=== PATIENT | female | born 1980 | race Caucasian/White ===

== ENCOUNTER 2016-12-09 18:49 | Emergency (ER) | payer OTHER ==
[~2016-12-09] VITALS: Ht 177.8 cm; Wt 72.7 kg
[~2016-12-09 18:49] MED LIST: DIPH25CA6 PO; PERM60CR4 TP
--- NOTE | 2016-12-09 18:59 | ED.REPORT ---
HPI-Psychiatric Illness Date of Service Dec 09, 2016 ED Provider: Dr. Sterling Moore D.O. A 36 year old female with a history of scabies presents to the ED via Police with suicidal ideation onset just prior to arrival. The Police have a copy of a suicide note written by the patient to her boyfriend outlining a plan to overdose on medication, writing "I hope I took enough pills this time." The patient wrote she is tired of being taken for granted and asks "please find my cat a good home." The patient's note indicates some of her hopelessness is exacerbated by problems with her significant other. Per police, the patient reports not eating or drinking for the past three days.The patient presents tearful and denies ever having pills on her person. She denies suicidal ideation currently. Yesterday she broke a window with her hand and presents with lacerations to her right hand, as well as apparently self-inflicted, old lacerations to her right wrist. Nursing Notes Stated Complaint: SUICIDAL IDEATION Nursing Notes Reviewed: Yes Allergies: Coded Allergies: No Known Allergies (Unverified , 12/09/16) Scheduled Permethrin (Permethrin Cream) 60 Gm Cream..g. 1 APPLIC TP UD Follow package instructions Scheduled PRN diphenhydrAMINE HCl (Benadryl) 25 Mg Capsule 25 MG PO Q4 PRN PRN For Itching General Time Seen by MD: 18:58 Chief Complaint Suicidal ideation Hx Obtained From: Patient, Police Arrived By: Police Onset Occurred: Just prior to arrival Context of Onset: Problem with spouse (Partner) Symptom Duration: Since onset Location: : Arm right Quality: Painful Severity: Current: Moderate Severity: Maximum: Moderate Associated with: Reports: Depression, Loss of appetite, Denies: Fever Exacerbated by: Relationship stress Pertinent Negative: Relieved by nothing Immunizations: Unknown Recent Healthcare: No recent doctor visit Risk-Psychiatric Illness Suicide Risk Stratification RF Statements: Risk factors reviewed Past Medical History Past Medical History Scabies Past Surgical History None reported Smoking History Unknown if Ever Smoker Social History Alcohol Use: Denies alcohol use Drug Use: Denies drug use Other Social History: Good social support, From out of town (Moved here late 2015) Ambulatory Status Independent Review of Systems Review of Systems Note: + Lacerations to right hand and right wrist Constitutional: Denies: Fever Respiratory: Denies: Non-productive cough, Shortness of breath GI: Denies: Vomiting Psychiatric: Reports: Depression, Suicidal ideation Complete sys rev & neg: except as marked. Musculoskeletal: Reports: Extremity pain (Right hand, right wrist) Physical Exam Initial Vital Signs Vital Signs (First) Date Time Temp Pulse Resp B/P Pulse Ox O2 Delivery O2 Flow Rate FiO2 12/09/16 19:24 37.2 74 18 127/83 98 Room Air Initial VS: Reviewed Head / Eyes: Atraumatic, Normocephalic ENT: Conjunctiva normal, No scleral icterus Neck: Supple, Full range of motion Respiratory: Breath sounds normal, Clear to auscultation, No respiratory distress Cardiovascular: Regular rate & rhythm, Heart sounds normal Skin: Warm, Dry General/Constitutional: Awake, Alert Behavior: Positive: Tearful Not making eye contact Neurologic: Oriented X3, Speech NL Abnormal Mood/Affect: Positive: Depressed Poor eye contact Patient denies suicidal ideation currently but her note clearly indicates suicidal ideation with plan Wrist / Hand: Full range of motion Trauma / Burn / Environmental: Positive: Laceration (1 cm curvilinear laceration at base of right thumb, multiple old lacerations to right wrist) Interpretation & Diagnostics URINE DRUG SCREEN: + Marijuana + Methamphetamine URINE TEST: Negative URINE DIPSTICK: 1.015 sp gravity 6 pH ++ Leukocytes Trace Protein Normal Glucose ++ Bilirubin ~50 Blood Neg Nitrites Lab Results Interpretation Result Diagram: 12/09/16194012/09/161940 Test 12/09/16 19:29 12/09/16 19:32 12/09/16 19:41 Urine Color Yellow (YELLOW) Urine Appearance Cloudy (CLEAR,HAZY) Urine pH 6.5 (5.0-8.0) Urine Specific [place] 1.015 (1.003-1.035) Urine Protein Negativemg/dL (NEG,TRACE) Urine Glucose (UA) Negativemg/dL (NEGATIVE) Urine Ketones Negativemg/dL (NEGATIVE) Urine Occult Blood Trace (NEGATIVE) Urine Nitrite Negative (NEGATIVE) Urine Bilirubin Negative (NEGATIVE) Urine Urobilinogen Normalmg/dL (NORMAL) Urine Leukocyte Esterase Moderate (NEGATIVE) Urine RBC 0-2/hpf (0-2) Urine WBC 11-50/hpf (0-5) Urine Epithelial Cells Many/hpf (NONE-MOD) Urine Crystals None seen (NONE SEEN) Urine Bacteria Many/hpf (NONE-FEW) Urine Hyaline Casts None/lpf (NONE) Urine Granular Casts None seen (NONE SEEN) Urine Waxy Casts None seen (NONE SEEN) Urine Red Blood Cell Casts None seen (NONE SEEN) Urine White Blood Cell Casts None seen (NONE SEEN) Urine Mucus None seen (None Seen) Urine Trichomonas None seen (NONE SEEN) Urine Yeast None (NONE SEEN) Urinalysis Comment None Urine Culture Reflexed Indicated Urine Opiates Screen Negative Urine Methadone Screen Negative Urine Barbiturates Screen Negative Urine Amphetamines Screen Positive Urine Benzodiazepines Screen Negative Urine Cocaine Metabolite Screen Negative Urine Cannabinoids Screen Positive White Blood Count 9.9th/mm3 (3.8-10.1) Red Blood Count 4.93mil/mm3 (3.90-5.20) Hemoglobin 15.1g/dL (12.0-15.6) Hematocrit 43.8% (35.0-46.0) Mean Corpuscular Volume 88.8fL (81-100) Mean Corpuscular Hemoglobin 30.6pg (27.0-35.0) Mean Corpuscular Hemoglobin Concent 34.5% (32.0-37.0) Red Cell Distribution Width 13.2% (12.3-15.4) Platelet Count 194bil/L (150-400) Neutrophils (%) (Auto) 64.4% (40-74) Lymphocytes (%) (Auto) 26.2% (14-46) Monocytes (%) (Auto) 6.7% (4-12) Eosinophils (%) (Auto) 2.2% (0-5) Basophils (%) (Auto) 0.3% (0-3) Sodium Level 143mEq/L (134-144) Potassium Level 4.0mEq/L (3.5-5.2) Chloride Level 106mEq/L (97-108) Carbon Dioxide Level 25mmol/L (18-29) Blood Urea Nitrogen 11mg/dL (6-20) Creatinine 0.59mg/dL (0.57-1.00) Estimat Glomerular Filtration Rate 163mL/min (>59) Glucose Level 96mg/dL (60-99) Calcium Level 9.0mg/dL (8.5-10.1) Total Bilirubin 0.4mg/dL (0.0-1.2) Aspartate Amino Transf (AST/SGOT) 18U/L (0-50) Alanine Aminotransferase (ALT/SGPT) 16U/L (0-32) Alkaline Phosphatase 91U/L (25-150) Total Protein 6.3g/dL (6.4-8.4) Albumin 4.0g/dL (3.4-5.0) Hold Ann Top Tube Received (Received) Salicylates Level < 3.0ug/mL (30-250) Acetaminophen Level < 15.0ug/mL Rx (10-25) ECG Interpretation ECG Interpretation: Sinus rhythm rate 67 No signs of toxicity Time: 19:34 Interpreted by: ED physician X-Ray Interpretation Xray Interpretation: IMPRESSION: No radiopaque soft tissue foreign bodies in the right hand. Dictated by: Denilson Sanchez M.D. on 12/09/2016 at 19:37 Study Performed: 3 View X-Ray Ordered: Hand right Re-Eval/Medical Decision Med Decision/Clinical Course Patient presents tearful via Police, who have a suicide note in hand, written by patient to her boyfriend. The patient denies suicidal ideation currently. She is medically cleared. Her wounds are too old to suture. Will x-ray hand, look for glass, and wait for social media community manager evaluation. Source of Hx: Old records Re-Evaluation/Progress : Time of Eval: 01:42 Patient Status: Condition improved Re-Evaluation/Progress Note: Patient is tearful and denies suicidal ideation but will not explain the note she has written. Discussed lab and x-ray results, diagnosis, and plan for transfer of care to Dr. Salinas. Consultation : Consulted With: coloring room worker Call Returned at: 20:02 Green Chainer: Agrees with eval, Agrees with plan Note: coloring room worker is unable to evaluate patient tonight. Recommends calling DCR after patient is medically cleared, otherwise will evaluate tomorrow. Counseled Regarding: Diagnosis, Lab results Discharge & Departure Shift Change Sign-Out Patient Care Transferred: Yes (Dr. Salinas) Discussed Complaint(s): Yes Laboratory Evaluation: Lab evaluation discussed Imaging Studies: Imaging discussed Response to Therapy: Improved Impression: Primary Impression: Depression Depression Type: major depressive disorder Major depression recurrence: recurrent Active/Remission status: currently active Major depression episode severity: moderate Qualified Code: F33.1 - Major depressive disorder, recurrent, moderate Additional Impression: Acute situational disturbance Discharge Condition All VS Reviewed: Yes Condition: Stable Referrals: [facility] (PCP) Care Transferred to: Dr. Salinas Care Transferred at: 03:00 Agapito Attestation Portions of this note were transcribed by Mara Joseph. I, Dr. Moore, personally performed the history, physical exam, and medical decision-making; I reviewed and confirmed the accuracy of the information in the transcribed note. Signed by: Agapito Harding, 12/10/2016, 01:55 copies to: [facility] Sterling Moore DO Dec 09, 2016 18:59 MARA JOSEPH Dec 09, 2016 19:38
[2016-12-09 19:24] VITALS: BP 127/83; PULSE 74; RESP 18; O2SAT 98
--- NOTE | 2016-12-09 19:44 | DRSVH ---
PROCEDURE: X-RAY RIGHT HAND, MINIMUM THREE VIEWS ([id number]) INDICATIONS: 36 year-old female with soft tissue injury, and possible glass foreign body. TECHNIQUE: 3 views of the hand(s) acquired. COMPARISON: None. FINDINGS: Bones: No fractures or dislocations. Carpal bones are normally aligned. No suspicious bony lesions . Soft tissues: No radiopaque soft tissue foreign bodies. IMPRESSION: No radiopaque soft tissue foreign bodies in the right hand. Dictated by: Denilson Sanchez M.D. on 12/09/2016 at 19:37 Approved by: Denilson Sanchez M.D. on 12/09/2016 at 19:38
[2016-12-09 20:00] LABS: BASOPHILS % (AUTO) 0.3 % (0-3); EOSINOPHILS % (AUTO) 2.2 % (0-5); MONOCYTES % (AUTO) 6.7 % (4-12); Mean Corpuscular Hemoglobin 30.6 pg (27.0-35.0); Mean Corpuscular Volume 88.8 fL (81-100); NEUTROPHILS % (AUTO) 64.4 % (40-74); Platelet Count 194 bil/L (150-400)
[2016-12-09 20:09] LABS: APPEARANCE,URINE CLOUDY (CLEAR,HAZY); COLOR,URINE YELLOW (YELLOW); OCCULT BLOOD,URINE TRACE (NEGATIVE); PH,URINE 6.5 (5.0-8.0); UROBILINOGEN,URINE NORMAL (NORMAL)
[2016-12-10] MEDS ORDERED: LORazepam 0.5 mg Tablet PO ONE (00:45)
[2016-12-10 02:35] VITALS: BP 121/79; PULSE 75; RESP 16; O2SAT 95
[2016-12-10] MEDS ORDERED: Nitrofurantoin Monohyd-Macrocryst 100 mg Capsule PO ONE (04:05)
[2016-12-10 06:49] VITALS: BP 98/63; PULSE 74; RESP 22; O2SAT 93
[2016-12-10 11:00] VITALS: BP 109/82; PULSE 74; RESP 16; O2SAT 94
[2016-12-10 12:52] VITALS: BP 116/42; PULSE 78; O2SAT 95
== END 2016-12-10 13:05 | disposition home or self-care (01) ==
LOC: SED 18:49
DX: F33.1 Major depressive disorder, recurrent, moderate (principal); F43.0 Acute stress reaction; R45.851 Suicidal ideations; S61.411A Laceration without foreign body of right hand, initial encounter; X78.0XXA Intentional self-harm by sharp glass, initial encounter; Y92.9 Unspecified place or not applicable; Y93.89 Activity, other specified; Y99.8 Other external cause status; Z83.1 Family history of other infectious and parasitic diseases
CPT/HCPCS: 36415; 73130; 80053; 81000; 81025; 82075; 85025; 87086; 90791; 93005; 99285; G0480